=== PATIENT | male | born 1945 | race Caucasian/White ===

== ENCOUNTER 2021-11-17 12:26 | Inpatient (IN) | payer MEDICARE, BC ==
[2021-11-17] MEDS ORDERED: Nitroglycerin 2% Ointment 1 INCH/1 GM Packet ONE (13:03)
[2021-11-17 13:04] LABS: #Basophils 0.1 thou/uL (0.0-0.2); #Eosinphils 0.3 thou/uL (0.0-0.7); #Lymphocytes 2.4 thou/uL (1.20-3.40); #Monocytes 1.1 thou/uL (0.11-0.59); #Neutrophils 6.3 thou/uL (1.40-6.50); %Basophils 0.5 % (0.0-1.0); %Eosinophils 2.6 % (0.0-10.0); %Neutrophils 61.9 % (42.0-75.0); Hemoglobin 12.3 g/dL (14.0-18.0); Mean Corpuscular Hemoglobin 28.2 pg (27.0-31.0); Mean Corpuscular Volume 88.3 fL (78.0-98.0); Mean Platelet Volume 6.8 fL (7.4-10.4); Platelet Count 214 thou/uL (130-400); Red Blood Cell (RBC) Count 4.36 mill/uL (4.70-6.10); White Blood Cell (WBC) Count 10.2 thou/uL (4.8-10.8)
[2021-11-17 13:25] LABS: ALT (SGPT) 34 U/L (8-55); AST (SGOT) 33 U/L (5-34); Albumin 3.5 g/dL (3.4-4.8); Alkaline Phosphatase 85 U/L (40-110); Anion Gap 18 mmol/L (10-20); BUN (Urea Nitrogen) 27 mg/dL (8.4-25.7); Bilirubin, Total 0.9 mg/dL (0.2-1.2); Calc. Creatinine Clearance 0 mL/min (70-130); Calcium 9.3 mg/dL (7.8-10.44); Carbon Dioxide 26 mmol/L (23-31); Chloride 92 mmol/L (98-107); Estimated GFR 47; Glucose 169 mg/dL (83-110); Protein, Total 7.5 g/dL (5.8-8.1); Sodium 132 mmol/L (136-145)
[2021-11-17] MEDS ORDERED: Furosemide 20 MG/2 ML VIAL ONE (14:17)
[2021-11-17] MEDS ORDERED: Furosemide 40 MG/4 ML VIAL ONE (14:17)
[2021-11-17 14:51] LABS: CKMB 1.6 ng/mL (0-6.6)
[2021-11-17] MEDS ORDERED: Ondansetron ODT 4 MG TAB PO PRN (15:47)
[2021-11-17] MEDS ORDERED: Acetaminophen 325 MG TAB PO PRN (15:47)
[2021-11-17 17:33] LABS: Troponin I 0.034 ng/mL (< 0.028)
[2021-11-17] MEDS: Metoprolol Tartrate 25 MG TAB PO SCH (20:11)
[2021-11-17] MEDS: Apixaban 5 MG TAB PO SCH (20:59)
[2021-11-17] MEDS: Atorvastatin Calcium 40 MG TAB PO SCH (20:59)
[2021-11-17] MEDS ORDERED: Tamsulosin HCl 0.4 MG CAP PO SCH (21:00)
[2021-11-17] MEDS: Mirtazapine 15 MG Soltab PO SCH (21:00)
[2021-11-17 21:01] LABS: Troponin I 0.035 ng/mL (< 0.028)
[2021-11-18 04:04] LABS: #Eosinphils 0.4 thou/uL (0.0-0.7); #Lymphocytes 2.1 thou/uL (1.20-3.40); #Monocytes 0.8 thou/uL (0.11-0.59); #Neutrophils 4.5 thou/uL (1.40-6.50); %Basophils 0.6 % (0.0-1.0); %Eosinophils 5.4 % (0.0-10.0); %Lymphocytes 26.6 % (21.0-51.0); %Monocytes 10.4 % (0.0-10.0); %Neutrophils 57.1 % (42.0-75.0); Hemoglobin 10.8 g/dL (14.0-18.0); Mean Corpuscular HGB CONC 32.2 g/dL (32.0-36.0); Mean Corpuscular Hemoglobin 28.6 pg (27.0-31.0); Mean Corpuscular Volume 88.7 fL (78.0-98.0); Mean Platelet Volume 6.6 fL (7.4-10.4); Platelet Count 197 thou/uL (130-400); RBC Distribution Width 16.2 % (11.5-14.5); Red Blood Cell (RBC) Count 3.77 mill/uL (4.70-6.10)
[2021-11-18 04:27] LABS: Anion Gap 13 mmol/L (10-20); BUN (Urea Nitrogen) 26 mg/dL (8.4-25.7); Calc. Creatinine Clearance 49 mL/min (70-130); Calcium 8.3 mg/dL (7.8-10.44); Carbon Dioxide 32 mmol/L (23-31); Chloride 96 mmol/L (98-107); Estimated GFR 56; Glucose 110 mg/dL (83-110); Potassium 3.1 mmol/L (3.5-5.1); Sodium 138 mmol/L (136-145)
[2021-11-18] MEDS: Amiodarone 200 MG TAB PO SCH (08:59)
[2021-11-18] MEDS: Apixaban 5 MG TAB PO SCH ×2 (08:59→21:22)
[2021-11-18] MEDS: Aspirin 81 mg Enteric Coated Tablet PO SCH (08:59)
[2021-11-18] MEDS ORDERED: Potassium Chloride 40 MEQ in Premix Bag 1 BAG IVPB SCH (09:00)
[2021-11-18] MEDS: Metoprolol Tartrate 25 MG TAB PO SCH (09:00)
[2021-11-18] MEDS: Furosemide 40 MG/4 ML VIAL SLOW IVP SCH (10:14)
[2021-11-18] MEDS: Calcium Carbonate + Vit D 250 MG TAB PO SCH (10:14)
[2021-11-18] MEDS: Mirtazapine 15 MG Soltab PO SCH (21:22)
[2021-11-18] MEDS: Atorvastatin Calcium 40 MG TAB PO SCH (21:22)
[2021-11-19 04:51] LABS: #Basophils 0.1 thou/uL (0.0-0.2); #Eosinphils 0.4 thou/uL (0.0-0.7); #Lymphocytes 2.2 thou/uL (1.20-3.40); #Monocytes 0.9 thou/uL (0.11-0.59); #Neutrophils 5.4 thou/uL (1.40-6.50); %Basophils 0.8 % (0.0-1.0); %Eosinophils 4.3 % (0.0-10.0); %Lymphocytes 24.9 % (21.0-51.0); %Monocytes 9.5 % (0.0-10.0); %Neutrophils 60.5 % (42.0-75.0); Hemoglobin 10.9 g/dL (14.0-18.0); Mean Corpuscular HGB CONC 31.6 g/dL (32.0-36.0); Mean Corpuscular Hemoglobin 28.2 pg (27.0-31.0); Mean Corpuscular Volume 89.1 fL (78.0-98.0); Mean Platelet Volume 6.9 fL (7.4-10.4); Platelet Count 214 thou/uL (130-400); RBC Distribution Width 16.2 % (11.5-14.5); Red Blood Cell (RBC) Count 3.85 mill/uL (4.70-6.10)
[2021-11-19 05:15] LABS: Anion Gap 14 mmol/L (10-20); BUN (Urea Nitrogen) 21 mg/dL (8.4-25.7); Calc. Creatinine Clearance 54 mL/min (70-130); Calcium 8.7 mg/dL (7.8-10.44); Carbon Dioxide 30 mmol/L (23-31); Chloride 98 mmol/L (98-107); Estimated GFR 64; Glucose 115 mg/dL (83-110); Potassium 3.2 mmol/L (3.5-5.1); Sodium 139 mmol/L (136-145)
[2021-11-19] MEDS: Apixaban 5 MG TAB PO SCH ×2 (09:53→20:21)
[2021-11-19] MEDS: Spironolactone 25 MG TAB PO SCH (09:53)
[2021-11-19] MEDS: Aspirin 81 mg Enteric Coated Tablet PO SCH (09:55)
[2021-11-19] MEDS: Amiodarone 200 MG TAB PO SCH (09:55)
[2021-11-19] MEDS: Furosemide 40 MG/4 ML VIAL SLOW IVP SCH (09:55)
[2021-11-19] MEDS: Calcium Carbonate + Vit D 250 MG TAB PO SCH (09:56)
[2021-11-19] MEDS: Empagliflozin 10 MG TAB PO SCH (09:56)
[2021-11-19] MEDS: Atorvastatin Calcium 40 MG TAB PO SCH (20:21)
[2021-11-19] MEDS: Mirtazapine 15 MG Soltab PO SCH (20:22)
[2021-11-20 04:51] LABS: #Basophils 0.1 thou/uL (0.0-0.2); #Eosinphils 0.6 thou/uL (0.0-0.7); #Monocytes 0.8 thou/uL (0.11-0.59); #Neutrophils 4.5 thou/uL (1.40-6.50); %Basophils 0.8 % (0.0-1.0); %Eosinophils 7.9 % (0.0-10.0); %Lymphocytes 24.9 % (21.0-51.0); %Monocytes 10.4 % (0.0-10.0); %Neutrophils 55.9 % (42.0-75.0); Hemoglobin 11.6 g/dL (14.0-18.0); Mean Corpuscular HGB CONC 32.1 g/dL (32.0-36.0); Mean Corpuscular Hemoglobin 28.7 pg (27.0-31.0); Mean Corpuscular Volume 89.4 fL (78.0-98.0); Mean Platelet Volume 6.4 fL (7.4-10.4); Platelet Count 220 thou/uL (130-400); RBC Distribution Width 16.4 % (11.5-14.5); Red Blood Cell (RBC) Count 4.04 mill/uL (4.70-6.10); White Blood Cell (WBC) Count 8.1 thou/uL (4.8-10.8)
[2021-11-20 05:16] LABS: Anion Gap 14 mmol/L (10-20); BUN (Urea Nitrogen) 17 mg/dL (8.4-25.7); Calc. Creatinine Clearance 53 mL/min (70-130); Calcium 8.4 mg/dL (7.8-10.44); Carbon Dioxide 29 mmol/L (23-31); Chloride 97 mmol/L (98-107); Estimated GFR 64; Glucose 110 mg/dL (83-110); Magnesium 1.9 mg/dL (1.6-2.6); Sodium 137 mmol/L (136-145)
[2021-11-20] MEDS: Furosemide 40 MG/4 ML VIAL SLOW IVP SCH (08:46)
[2021-11-20] MEDS: Apixaban 5 MG TAB PO SCH ×2 (08:46→20:41)
[2021-11-20] MEDS: Spironolactone 25 MG TAB PO SCH (08:46)
[2021-11-20] MEDS: Amiodarone 200 MG TAB PO SCH (08:46)
[2021-11-20] MEDS: Aspirin 81 mg Enteric Coated Tablet PO SCH (08:47)
[2021-11-20] MEDS: Empagliflozin 10 MG TAB PO SCH (08:47)
[2021-11-20] MEDS: Calcium Carbonate + Vit D 250 MG TAB PO SCH (08:53)
[2021-11-20] MEDS ORDERED: Potassium Chloride 20 MEQ TAB PO SCH (09:00)
[2021-11-20 13:03] VITALS: BMI 23.0
[2021-11-20] MEDS: Potassium Chloride 20 MEQ TAB PO SCH (17:53)
[2021-11-20] MEDS: Atorvastatin Calcium 40 MG TAB PO SCH (20:41)
[2021-11-20] MEDS: Mirtazapine 15 MG Soltab PO SCH (20:42)
[2021-11-21 04:06] LABS: #Eosinphils 0.6 thou/uL (0.0-0.7); #Lymphocytes 2.1 thou/uL (1.20-3.40); #Monocytes 0.9 thou/uL (0.11-0.59); #Neutrophils 3.9 thou/uL (1.40-6.50); %Basophils 0.4 % (0.0-1.0); %Eosinophils 8.6 % (0.0-10.0); %Lymphocytes 27.2 % (21.0-51.0); %Monocytes 11.5 % (0.0-10.0); %Neutrophils 52.2 % (42.0-75.0); Hemoglobin 11.6 g/dL (14.0-18.0); Mean Corpuscular HGB CONC 32.3 g/dL (32.0-36.0); Mean Corpuscular Hemoglobin 28.8 pg (27.0-31.0); Mean Corpuscular Volume 89.2 fL (78.0-98.0); Mean Platelet Volume 6.2 fL (7.4-10.4); Platelet Count 224 thou/uL (130-400); RBC Distribution Width 16.2 % (11.5-14.5); Red Blood Cell (RBC) Count 4.01 mill/uL (4.70-6.10); White Blood Cell (WBC) Count 7.5 thou/uL (4.8-10.8)
[2021-11-21 04:26] LABS: Anion Gap 11 mmol/L (10-20); BUN (Urea Nitrogen) 17 mg/dL (8.4-25.7); Calc. Creatinine Clearance 61 mL/min (70-130); Calcium 8.4 mg/dL (7.8-10.44); Carbon Dioxide 28 mmol/L (23-31); Chloride 101 mmol/L (98-107); Estimated GFR 75; Glucose 113 mg/dL (83-110); Potassium 3.4 mmol/L (3.5-5.1); Sodium 137 mmol/L (136-145)
[2021-11-21] MEDS ORDERED: Potassium Chloride 20 MEQ TAB PO SCH (08:45)
[2021-11-21] MEDS: Aspirin 81 mg Enteric Coated Tablet PO SCH (09:02)
[2021-11-21] MEDS: Apixaban 5 MG TAB PO SCH ×2 (09:02→21:19)
[2021-11-21] MEDS: Furosemide 40 MG/4 ML VIAL SLOW IVP SCH (09:02)
[2021-11-21] MEDS: Amiodarone 200 MG TAB PO SCH (09:02)
[2021-11-21] MEDS: Empagliflozin 10 MG TAB PO SCH (09:03)
[2021-11-21] MEDS: Calcium Carbonate + Vit D 250 MG TAB PO SCH (10:48)
[2021-11-21] MEDS: Potassium Chloride 20 MEQ TAB PO SCH (10:58)
[2021-11-21] MEDS: Atorvastatin Calcium 40 MG TAB PO SCH (21:20)
[2021-11-21] MEDS: Mirtazapine 15 MG Soltab PO SCH (21:20)
[2021-11-22 03:59] LABS: #Basophils 0.1 thou/uL (0.0-0.2); #Eosinphils 0.7 thou/uL (0.0-0.7); #Lymphocytes 2.6 thou/uL (1.20-3.40); #Neutrophils 4.5 thou/uL (1.40-6.50); %Basophils 0.8 % (0.0-1.0); %Lymphocytes 29.8 % (21.0-51.0); %Neutrophils 50.3 % (42.0-75.0); Hemoglobin 11.5 g/dL (14.0-18.0); Mean Corpuscular HGB CONC 31.3 g/dL (32.0-36.0); Mean Corpuscular Hemoglobin 27.8 pg (27.0-31.0); Mean Corpuscular Volume 88.8 fL (78.0-98.0); Mean Platelet Volume 6.1 fL (7.4-10.4); Platelet Count 241 thou/uL (130-400); RBC Distribution Width 16.2 % (11.5-14.5); Red Blood Cell (RBC) Count 4.14 mill/uL (4.70-6.10); White Blood Cell (WBC) Count 8.9 thou/uL (4.8-10.8)
[2021-11-22 04:32] LABS: Anion Gap 17 mmol/L (10-20); BUN (Urea Nitrogen) 18 mg/dL (8.4-25.7); Calc. Creatinine Clearance 55 mL/min (70-130); Calcium 8.6 mg/dL (7.8-10.44); Carbon Dioxide 23 mmol/L (23-31); Chloride 98 mmol/L (98-107); Estimated GFR 66; Glucose 104 mg/dL (83-110); Magnesium 1.8 mg/dL (1.6-2.6); Potassium 3.7 mmol/L (3.5-5.1); Sodium 134 mmol/L (136-145)
[2021-11-22] MEDS: Furosemide 40 MG/4 ML VIAL SLOW IVP SCH ×2 (06:14→13:01)
[2021-11-22] MEDS: Aspirin 81 mg Enteric Coated Tablet PO SCH (08:31)
[2021-11-22] MEDS: Amiodarone 200 MG TAB PO SCH (08:31)
[2021-11-22] MEDS: Apixaban 5 MG TAB PO SCH ×2 (08:32→20:45)
[2021-11-22] MEDS: Empagliflozin 10 MG TAB PO SCH (08:32)
[2021-11-22] MEDS: Calcium Carbonate + Vit D 250 MG TAB PO SCH (08:32)
[2021-11-22] MEDS ORDERED: Guaifenesin DM 100-10/5 ML UDCUP PO PRN (10:32)
[2021-11-22] MEDS: Mirtazapine 15 MG Soltab PO SCH (20:45)
[2021-11-22] MEDS: Atorvastatin Calcium 40 MG TAB PO SCH (20:45)
[2021-11-23] MEDS: Furosemide 40 MG/4 ML VIAL SLOW IVP SCH ×2 (06:30→12:35)
[2021-11-23] MEDS: Apixaban 5 MG TAB PO SCH ×2 (09:03→20:53)
[2021-11-23] MEDS: Aspirin 81 mg Enteric Coated Tablet PO SCH (09:04)
[2021-11-23] MEDS: Empagliflozin 10 MG TAB PO SCH (09:05)
[2021-11-23] MEDS: Calcium Carbonate + Vit D 250 MG TAB PO SCH (09:07)
[2021-11-23] MEDS: Amiodarone 200 MG TAB PO SCH (11:06)
[2021-11-23] MEDS: Mirtazapine 15 MG Soltab PO SCH (20:53)
[2021-11-23] MEDS: Atorvastatin Calcium 40 MG TAB PO SCH (20:53)
[2021-11-24 05:04] LABS: Anion Gap 14 mmol/L (10-20); BUN (Urea Nitrogen) 19 mg/dL (8.4-25.7); Calc. Creatinine Clearance 59 mL/min (70-130); Calcium 8.7 mg/dL (7.8-10.44); Carbon Dioxide 25 mmol/L (23-31); Chloride 100 mmol/L (98-107); Estimated GFR 71; Glucose 110 mg/dL (83-110); Potassium 3.4 mmol/L (3.5-5.1); Sodium 136 mmol/L (136-145)
[2021-11-24] MEDS: Furosemide 40 MG/4 ML VIAL SLOW IVP SCH ×2 (05:32→13:28)
[2021-11-24] MEDS: Apixaban 5 MG TAB PO SCH (08:32)
[2021-11-24] MEDS: Aspirin 81 mg Enteric Coated Tablet PO SCH (08:32)
[2021-11-24] MEDS: Empagliflozin 10 MG TAB PO SCH (08:32)
[2021-11-24] MEDS: Amiodarone 200 MG TAB PO SCH (08:32)
[2021-11-24 12:36] VITALS: TEMP 97.8
[2021-11-24] MEDS: Calcium Carbonate + Vit D 250 MG TAB PO SCH (13:28)
[2021-11-24 16:33] VITALS: BP 95/52
== END 2021-11-24 17:20 | disposition home health service (06) | DRG 280 ==
LOC: ERS 12:26 → 2NO 14:01
PROVIDERS: ADMIT Family Medicine; ATTEND Family Medicine
DX: I13.0 Hypertensive heart and chronic kidney disease with heart failure and stage 1 through stage 4 chronic kidney disease, or unspecified chronic kidney disease (principal); I21.A1 Myocardial infarction type 2; I50.23 Acute on chronic systolic (congestive) heart failure; J96.01 Acute respiratory failure with hypoxia; N17.9 Acute kidney failure, unspecified; E87.1 Hypo-osmolality and hyponatremia; Z20.822 Contact with and (suspected) exposure to COVID-19; I48.91 Unspecified atrial fibrillation; E11.22 Type 2 diabetes mellitus with diabetic chronic kidney disease; I25.5 Ischemic cardiomyopathy; E87.6 Hypokalemia; E78.5 Hyperlipidemia, unspecified; D69.6 Thrombocytopenia, unspecified; N18.30 Chronic kidney disease, stage 3 unspecified; D63.1 Anemia in chronic kidney disease; I25.10 Atherosclerotic heart disease of native coronary artery without angina pectoris; I95.9 Hypotension, unspecified; Z79.01 Long term (current) use of anticoagulants; Z79.82 Long term (current) use of aspirin; Z79.899 Other long term (current) drug therapy; Z95.1 Presence of aortocoronary bypass graft
CPT/HCPCS: 36415; 71045; 80048; 80053; 82553; 83735; 83880; 84443; 84484; 85025; 93005; 93306; 93798; 96374; J1940; J3480; U0003; U0005

== ENCOUNTER 2021-12-25 18:45 | Inpatient (IN) | payer MEDICARE ==
[2021-12-25 20:26] LABS: #Lymphocytes 1.2 thou/uL (1.20-3.40); #Monocytes 1.3 thou/uL (0.11-0.59); #Neutrophils 9.8 thou/uL (1.40-6.50); %Basophils 0.3 % (0.0-1.0); %Eosinophils 0.3 % (0.0-10.0); %Monocytes 10.1 % (0.0-10.0); %Neutrophils 79.4 % (42.0-75.0); Hemoglobin 12.7 g/dL (14.0-18.0); Mean Corpuscular HGB CONC 31.6 g/dL (32.0-36.0); Mean Corpuscular Hemoglobin 28.5 pg (27.0-31.0); Mean Corpuscular Volume 90.1 fL (78.0-98.0); Mean Platelet Volume 7.4 fL (7.4-10.4); Platelet Count 241 thou/uL (130-400); RBC Distribution Width 19.1 % (11.5-14.5); Red Blood Cell (RBC) Count 4.46 mill/uL (4.70-6.10); White Blood Cell (WBC) Count 12.4 thou/uL (4.8-10.8)
[2021-12-25 20:47] LABS: ALT (SGPT) 630 U/L (8-55); AST (SGOT) 870 U/L (5-34); Albumin 3.4 g/dL (3.4-4.8); Alkaline Phosphatase 138 U/L (40-110); Anion Gap 22 mmol/L (10-20); BUN (Urea Nitrogen) 32 mg/dL (8.4-25.7); Bilirubin, Total 1.2 mg/dL (0.2-1.2); Calc. Creatinine Clearance 0 mL/min (70-130); Calcium 9.2 mg/dL (7.8-10.44); Carbon Dioxide 22 mmol/L (23-31); Chloride 94 mmol/L (98-107); Estimated GFR 44; Globulin 3.4 g/dL (2.4-3.5); Glucose 145 mg/dL (83-110); Potassium 3.5 mmol/L (3.5-5.1); Protein, Total 6.8 g/dL (5.8-8.1); Sodium 134 mmol/L (136-145)
[2021-12-25] MEDS ORDERED: Albumin 25% 25 GM/100 ML BOT IVPB SCH (21:00)
[2021-12-25 21:08] LABS: CKMB 1.8 ng/mL (0-6.6)
[2021-12-25] MEDS ORDERED: Furosemide 20 MG/2 ML VIAL ONE (22:08)
[2021-12-26 00:19] LABS: SARS-CoV-2 NAA Rapid Test Not Detected (NotDetected)
[2021-12-26 00:59] LABS: Troponin I 0.049 ng/mL (< 0.028)
[2021-12-26 04:11] LABS: #Lymphocytes 1.7 thou/uL (1.20-3.40); #Monocytes 0.9 thou/uL (0.11-0.59); #Neutrophils 8.1 thou/uL (1.40-6.50); %Basophils 0.3 % (0.0-1.0); %Eosinophils 0.3 % (0.0-10.0); %Lymphocytes 15.4 % (21.0-51.0); %Monocytes 8.5 % (0.0-10.0); %Neutrophils 75.6 % (42.0-75.0); Hemoglobin 11.5 g/dL (14.0-18.0); Mean Corpuscular HGB CONC 31.7 g/dL (32.0-36.0); Mean Corpuscular Hemoglobin 27.9 pg (27.0-31.0); Mean Corpuscular Volume 88.2 fL (78.0-98.0); Mean Platelet Volume 7.5 fL (7.4-10.4); Platelet Count 196 thou/uL (130-400); RBC Distribution Width 18.6 % (11.5-14.5); Red Blood Cell (RBC) Count 4.12 mill/uL (4.70-6.10); White Blood Cell (WBC) Count 10.8 thou/uL (4.8-10.8)
[2021-12-26] MEDS ORDERED: Dextrose 5% in Water 1,000 ML IV PRN ×2 (04:30→20:14)
[2021-12-26] MEDS ORDERED: HumaLOG 300 UNITS/3 ML VIAL SC PRN ×2 (04:30→20:15)
[2021-12-26] MEDS ORDERED: Dextrose 50% Abboject 50 ML SYRINGE SLOW IVP PRN ×2 (04:30→20:14)
[2021-12-26] MEDS ORDERED: Furosemide 20 MG/2 ML VIAL ONE (05:46)
[2021-12-26] MEDS ORDERED: Furosemide 20 MG/2 ML VIAL SLOW IVP SCH (06:00)
[2021-12-26 06:13] LABS: ALT (SGPT) 729 U/L (8-55); AST (SGOT) 998 U/L (5-34); Albumin 3.5 g/dL (3.4-4.8); Alkaline Phosphatase 112 U/L (40-110); BUN (Urea Nitrogen) 33 mg/dL (8.4-25.7); Calc. Creatinine Clearance 0 mL/min (70-130); Calcium 9.1 mg/dL (7.8-10.44); Carbon Dioxide 22 mmol/L (23-31); Chloride 97 mmol/L (98-107); Estimated GFR 48; Glucose 124 mg/dL (83-110); Magnesium 2.3 mg/dL (1.6-2.6); Potassium 3.2 mmol/L (3.5-5.1); Protein, Total 6.5 g/dL (5.8-8.1); Sodium 136 mmol/L (136-145)
[2021-12-26 06:57] LABS: Anion Gap 20 mmol/L (10-20)
[2021-12-26 07:46] LABS: Bilirubin, Total 1.3 mg/dL (0.2-1.2)
[2021-12-26] MEDS ORDERED: Potassium Chloride 20 MEQ TAB PO SCH (08:00)
[2021-12-26] MEDS ORDERED: Aspirin Chewable 81 MG TAB PO SCH (09:00)
[2021-12-26] MEDS ORDERED: Potassium Chloride 20 MEQ TAB ONE (09:10)
[2021-12-26] MEDS ORDERED: Aspirin Chewable 81 MG TAB ONE (09:10)
[2021-12-26] MEDS: Heparin 5,000 UNITS/ML VIAL SC SCH ×3 (09:15→20:46)
[2021-12-26] MEDS ORDERED: Albumin 25% 25 GM/100 ML BOT IVPB SCH (14:00)
[2021-12-26] MEDS: Furosemide 40 MG/4 ML VIAL SLOW IVP SCH (16:47)
[2021-12-26] MEDS ORDERED: Furosemide 40 MG/4 ML VIAL SLOW IVP SCH (20:45)
[2021-12-26] MEDS: Mirtazapine 15 MG Soltab PO SCH (20:52)
[2021-12-26] MEDS: Atorvastatin Calcium 40 MG TAB PO SCH (20:52)
[2021-12-26] MEDS ORDERED: Atorvastatin Calcium 40 MG TAB PO SCH (21:00)
[2021-12-26] MEDS ORDERED: Non-Formulary Item 1 EACH (Omeprazole [Omeprazole] 20 MG Tab.Rap.Dr) PO SCH (21:00)
[2021-12-26] MEDS ORDERED: Mirtazapine 15 MG Soltab PO SCH (21:00)
[2021-12-27] MEDS ORDERED: Furosemide 40 MG/4 ML VIAL ONE (05:26)
[2021-12-27] MEDS: Furosemide 40 MG/4 ML VIAL SLOW IVP SCH (06:15)
[2021-12-27] MEDS: Aspirin Chewable 81 MG TAB PO SCH (09:08)
[2021-12-27] MEDS: Metolazone 2.5 MG TAB PO SCH (09:08)
[2021-12-27] MEDS: Potassium Chloride 20 MEQ TAB PO SCH (09:08)
[2021-12-27] MEDS: Heparin 5,000 UNITS/ML VIAL SC SCH ×3 (09:10→20:27)
[2021-12-27 09:43] LABS: Anion Gap 19 mmol/L (10-20); BUN (Urea Nitrogen) 52 mg/dL (8.4-25.7); Calc. Creatinine Clearance 0 mL/min (70-130); Calcium 8.9 mg/dL (7.8-10.44); Carbon Dioxide 24 mmol/L (23-31); Chloride 99 mmol/L (98-107); Estimated GFR 37; Glucose 112 mg/dL (83-110); Potassium 3.5 mmol/L (3.5-5.1); Sodium 138 mmol/L (136-145)
[2021-12-27 09:53] LABS: Anisocytosis SLIGHT = 6-15 cells (100X) (0-5/hpf); Auer Rods SLIGHT; Band 13 % (5-11); Hemoglobin 11.9 g/dL (14.0-18.0); Lymphocytes 11 % (21-51); MDiff Complete? YES; Mean Corpuscular HGB CONC 31.3 g/dL (32.0-36.0); Mean Corpuscular Hemoglobin 28.7 pg (27.0-31.0); Mean Corpuscular Volume 91.5 fL (78.0-98.0); Mean Platelet Volume 7.7 fL (7.4-10.4); Monocytes 1 % (0-10); Neutrophil 72 % (42-75); Nucleated RBC 1 % (0); Platelet Count 157 thou/uL (130-400); Polychromasia MODERATE = 3-4 cells (100X) (0-2/hpf); RBC Distribution Width 19.5 % (11.5-14.5); Reactive Lymphocytes 3 % (0-10); Red Blood Cell (RBC) Count 4.16 mill/uL (4.70-6.10)
[2021-12-27] MEDS ORDERED: Milk Of Magnesia 30 ML UDCUP PO PRN (10:07)
[2021-12-27] MEDS: Mirtazapine 15 MG Soltab PO SCH (20:27)
[2021-12-27] MEDS: Atorvastatin Calcium 40 MG TAB PO SCH (20:27)
[2021-12-28 04:20] LABS: Anion Gap 15 mmol/L (10-20); BUN (Urea Nitrogen) 51 mg/dL (8.4-25.7); Calc. Creatinine Clearance 0 mL/min (70-130); Calcium 8.8 mg/dL (7.8-10.44); Carbon Dioxide 31 mmol/L (23-31); Chloride 97 mmol/L (98-107); Estimated GFR 45; Glucose 89 mg/dL (83-110); Sodium 140 mmol/L (136-145)
[2021-12-28 04:25] LABS: Potassium 2.5 mmol/L (3.5-5.1)
[2021-12-28] MEDS ORDERED: Potassium Chloride 20 MEQ TAB PO SCH ×2 (05:15→13:00)
[2021-12-28 05:36] LABS: Magnesium 2.2 mg/dL (1.6-2.6)
[2021-12-28] MEDS: Metolazone 2.5 MG TAB PO SCH (08:11)
[2021-12-28] MEDS: Heparin 5,000 UNITS/ML VIAL SC SCH ×3 (08:11→20:25)
[2021-12-28] MEDS: Potassium Chloride 20 MEQ TAB PO SCH (08:11)
[2021-12-28] MEDS: Aspirin Chewable 81 MG TAB PO SCH (08:11)
[2021-12-28 11:24] LABS: Anion Gap 15 mmol/L (10-20); BUN (Urea Nitrogen) 47 mg/dL (8.4-25.7); Calc. Creatinine Clearance 0 mL/min (70-130); Calcium 9.1 mg/dL (7.8-10.44); Carbon Dioxide 30 mmol/L (23-31); Chloride 98 mmol/L (98-107); Estimated GFR 53; Glucose 137 mg/dL (83-110); Potassium 3.1 mmol/L (3.5-5.1); Sodium 140 mmol/L (136-145)
[2021-12-28 16:07] LABS: Potassium 3.8 mmol/L (3.5-5.1)
[2021-12-28] MEDS: Mirtazapine 15 MG Soltab PO SCH (20:26)
[2021-12-28] MEDS: Atorvastatin Calcium 40 MG TAB PO SCH (20:26)
[2021-12-29 05:06] LABS: ALT (SGPT) 1593 U/L (8-55); AST (SGOT) 1003 U/L (5-34); Albumin 3.2 g/dL (3.4-4.8); Alkaline Phosphatase 98 U/L (40-110); Anion Gap 15 mmol/L (10-20); BUN (Urea Nitrogen) 51 mg/dL (8.4-25.7); Bilirubin, Total 2.1 mg/dL (0.2-1.2); Calc. Creatinine Clearance 0 mL/min (70-130); Calcium 9.1 mg/dL (7.8-10.44); Carbon Dioxide 28 mmol/L (23-31); Chloride 98 mmol/L (98-107); Estimated GFR 56; Globulin 2.9 g/dL (2.4-3.5); Glucose 126 mg/dL (83-110); Potassium 3.6 mmol/L (3.5-5.1); Protein, Total 6.1 g/dL (5.8-8.1); Sodium 137 mmol/L (136-145)
[2021-12-29 09:14] LABS: HBCM Index 0.06 S/CO (0-0.79); HBSAg Index 0.31 S/CO (0-0.99); Hep A IgM AB Non-Reactive (NonReactive); Hep A IgM S/CO 0.19 S/CO (0-0.79); Hep B Surf Ag Non-Reactive S/CO (NonReactive); Hepatitis B Core IgM Abs Non-Reactive (NonReactive)
[2021-12-29] MEDS: Heparin 5,000 UNITS/ML VIAL SC SCH ×3 (10:08→20:41)
[2021-12-29] MEDS: Metolazone 2.5 MG TAB PO SCH (10:08)
[2021-12-29] MEDS: Aspirin Chewable 81 MG TAB PO SCH (10:08)
[2021-12-29] MEDS: Potassium Chloride 20 MEQ TAB PO SCH (10:08)
[2021-12-29 10:11] LABS: Hep C IgG Ab Reflex HepC Qnt (NonReactive); Hep C Index 2.64 S/CO (0-0.79)
[2021-12-29 11:32] VITALS: BMI 24.1
[2021-12-29 18:09] LABS: Hemoglobin 12.5 g/dL (14.0-18.0); Platelet Count 86 thou/uL (130-400)
[2021-12-29] MEDS: Mirtazapine 15 MG Soltab PO SCH (20:53)
[2021-12-30 05:08] LABS: ALT (SGPT) 1281 U/L (8-55); AST (SGOT) 557 U/L (5-34); Albumin 3.2 g/dL (3.4-4.8); Alkaline Phosphatase 94 U/L (40-110); Bilirubin, Direct 1.3 mg/dL (0.1-0.3); Bilirubin, Total 2.5 mg/dL (0.2-1.2); Protein, Total 6.5 g/dL (5.8-8.1)
[2021-12-30 05:17] LABS: Anion Gap 15 mmol/L (10-20); BUN (Urea Nitrogen) 56 mg/dL (8.4-25.7); Calc. Creatinine Clearance 49 mL/min (70-130); Calcium 8.9 mg/dL (7.8-10.44); Carbon Dioxide 30 mmol/L (23-31); Chloride 96 mmol/L (98-107); Estimated GFR 58; Glucose 147 mg/dL (83-110); Potassium 4.1 mmol/L (3.5-5.1); Sodium 137 mmol/L (136-145)
[2021-12-30 05:20] LABS: Prothrombin Time 22.9 sec (12.0-14.7)
[2021-12-30 05:47] LABS: #Lymphocytes 1.5 thou/uL (1.20-3.40); #Neutrophils 8.6 thou/uL (1.40-6.50); %Basophils 0.1 % (0.0-1.0); %Eosinophils 0.3 % (0.0-10.0); %Lymphocytes 13.5 % (21.0-51.0); %Neutrophils 77.2 % (42.0-75.0); Anisocytosis MODERATE=16-30 cells (100X) (0-5/hpf); Elliptocytes SLIGHT = 2-5 cells (100X) (0-1/hpf); Hemoglobin 12.4 g/dL (14.0-18.0); MDiff Complete? YES; Mean Corpuscular HGB CONC 30.3 g/dL (32.0-36.0); Mean Corpuscular Hemoglobin 27.8 pg (27.0-31.0); Mean Platelet Volume 9.9 fL (7.4-10.4); Platelet Count 78 thou/uL (130-400); Platelet Morphology Comment Appears Decreased; Polychromasia SLIGHT = 2-3 cells (100X) (0-2/hpf); RBC Distribution Width 19.8 % (11.5-14.5); Red Blood Cell (RBC) Count 4.45 mill/uL (4.70-6.10); White Blood Cell (WBC) Count 11.1 thou/uL (4.8-10.8)
[2021-12-30] MEDS: Aspirin Chewable 81 MG TAB PO SCH (09:21)
[2021-12-30] MEDS: Metolazone 2.5 MG TAB PO SCH (09:21)
[2021-12-30] MEDS: Potassium Chloride 20 MEQ TAB PO SCH (09:21)
[2021-12-30] MEDS: Heparin 5,000 UNITS/ML VIAL SC SCH (09:22)
[2021-12-30] MEDS: Furosemide 40 MG/4 ML VIAL SLOW IVP SCH ×2 (09:23→14:35)
[2021-12-30] MEDS: Mirtazapine 15 MG Soltab PO SCH (20:37)
[2021-12-31 05:32] LABS: #Eosinphils 0.1 thou/uL (0.0-0.7); #Lymphocytes 1.4 thou/uL (1.20-3.40); #Monocytes 0.6 thou/uL (0.11-0.59); #Neutrophils 7.1 thou/uL (1.40-6.50); %Basophils 0.1 % (0.0-1.0); %Eosinophils 0.9 % (0.0-10.0); %Lymphocytes 15.1 % (21.0-51.0); %Monocytes 6.9 % (0.0-10.0); Elliptocytes SLIGHT = 2-5 cells (100X) (0-1/hpf); Hemoglobin 11.9 g/dL (14.0-18.0); MDiff Complete? YES; Mean Corpuscular HGB CONC 30.7 g/dL (32.0-36.0); Mean Corpuscular Hemoglobin 28.5 pg (27.0-31.0); Mean Corpuscular Volume 92.7 fl (78.0-98.0); Mean Platelet Volume 9.9 fL (7.4-10.4); Platelet Count 75 thou/uL (130-400); Platelet Morphology Comment Appears Decreased; Red Blood Cell (RBC) Count 4.18 mill/uL (4.70-6.10); White Blood Cell (WBC) Count 9.3 thou/uL (4.8-10.8)
[2021-12-31] MEDS ORDERED: DOBUTamine 500 mg/250 ml 250 ML IVPB SCH (06:00)
[2021-12-31 06:16] LABS: ALT (SGPT) 877 U/L (8-55); AST (SGOT) 247 U/L (5-34); Albumin 3.1 g/dL (3.4-4.8); Alkaline Phosphatase 89 U/L (40-110); Anion Gap 16 mmol/L (10-20); BUN (Urea Nitrogen) 57 mg/dL (8.4-25.7); Bilirubin, Direct 1.6 mg/dL (0.1-0.3); Calc. Creatinine Clearance 53 mL/min (70-130); Carbon Dioxide 33 mmol/L (23-31); Chloride 93 mmol/L (98-107); Estimated GFR 64; Glucose 109 mg/dL (83-110); Protein, Total 6.2 g/dL (5.8-8.1); Sodium 139 mmol/L (136-145)
[2021-12-31 06:21] LABS: Potassium 2.9 mmol/L (3.5-5.1)
[2021-12-31 07:23] LABS: Magnesium 2.3 mg/dL (1.6-2.6)
[2021-12-31] MEDS ORDERED: Metolazone 2.5 MG TAB PO SCH (07:30)
[2021-12-31] MEDS ORDERED: Potassium Chloride 20 MEQ TAB PO SCH ×2 (08:30→18:00)
[2021-12-31] MEDS: Furosemide 40 MG/4 ML VIAL SLOW IVP SCH ×2 (10:16→16:02)
[2021-12-31] MEDS: Aspirin Chewable 81 MG TAB PO SCH (10:16)
[2021-12-31] MEDS: Potassium Chloride 20 MEQ TAB PO SCH (11:07)
[2021-12-31 11:38] LABS: ANA Symphony (Qualitative) Negative (Negative); ANA Symphony (Quantitative) 0.4 Ratio (< 0.7 Negative); EliA Vaculitis New Method **** NEW METHOD ****; dsDNA IgG Antibody 1.6 IU/mL (<10 Negative)
[2021-12-31] MEDS: Mirtazapine 15 MG Soltab PO SCH (20:48)
[2021-12-31 22:09] LABS: Hep C PCR-Quant HCV Not Detected IU/mL (.)
[2022-01-01 04:33] LABS: BUN (Urea Nitrogen) 47 mg/dL (8.4-25.7); Calc. Creatinine Clearance 59 mL/min (70-130); Calcium 8.7 mg/dL (7.8-10.44); Estimated GFR 73; Glucose 118 mg/dL (83-110)
[2022-01-01 04:34] LABS: Potassium 2.7 mmol/L (3.5-5.1); Sodium 142 mmol/L (136-145)
[2022-01-01 04:35] LABS: Chloride 92 mmol/L (98-107)
[2022-01-01 04:41] LABS: Anion Gap 19 mmol/L (10-20); Carbon Dioxide 34 mmol/L (23-31)
[2022-01-01] MEDS ORDERED: Electrolyte Replacement Protocol 1 EACH FS SCH (04:45)
[2022-01-01] MEDS: Potassium Chloride 40 MEQ in Sodium Chloride 0.9% 250 ML 250 ML IVPB SCH ×2 (05:11→11:05)
[2022-01-01 08:13] LABS: #Eosinphils 0.1 thou/uL (0.0-0.7); #Lymphocytes 1.1 thou/uL (1.20-3.40); #Monocytes 0.7 thou/uL (0.11-0.59); #Neutrophils 6.4 thou/uL (1.40-6.50); %Basophils 0.2 % (0.0-1.0); %Lymphocytes 13.4 % (21.0-51.0); %Monocytes 8.3 % (0.0-10.0); %Neutrophils 77.1 % (42.0-75.0); Mean Corpuscular Hemoglobin 28.3 pg (27.0-31.0); Mean Corpuscular Volume 91.5 fl (78.0-98.0); Mean Platelet Volume 8.5 fL (7.4-10.4); Platelet Count 76 thou/uL (130-400); RBC Distribution Width 19.8 % (11.5-14.5); Red Blood Cell (RBC) Count 4.22 mill/uL (4.70-6.10); White Blood Cell (WBC) Count 8.2 thou/uL (4.8-10.8)
[2022-01-01 08:17] LABS: INR-International Normal Ratio 1.6; Prothrombin Time 19.3 sec (12.0-14.7)
[2022-01-01] MEDS ORDERED: Potassium Chloride 40 MEQ in Premix Bag 1 BAG IVPB SCH (09:00)
[2022-01-01] MEDS: Potassium Chloride 20 MEQ TAB PO SCH (09:53)
[2022-01-01] MEDS: Aspirin Chewable 81 MG TAB PO SCH (09:53)
[2022-01-01] MEDS ORDERED: Vancomycin 1.5 GRAM/300 ML BAG 1.5 GM in Premix Bag 1 BAG IVPB SCH (10:00)
[2022-01-01] MEDS ORDERED: Lidocaine 1% (PF) 30 ML VIAL ONE ×2 (13:06→13:07)
[2022-01-01] MEDS ORDERED: Gentamicin 80 MG/2 ML VIAL ONE (13:07)
[2022-01-01] MEDS ORDERED: CEFAZOLIN 1 GM VIAL ONE ×2 (13:07→14:11)
[2022-01-01] MEDS ORDERED: Albumin 5% 500 ML ONE (13:21)
[2022-01-01] MEDS ORDERED: Phenylephrine 10 MG/ML VIAL ONE (13:21)
[2022-01-01] MEDS ORDERED: FENTANYL 50 MCG/ML VIAL 50 MCG/ML VIAL ONE (13:38)
[2022-01-01] MEDS ORDERED: Ondansetron PF 4 MG/2 ML Vial ONE (13:47)
[2022-01-01] MEDS ORDERED: PHENYLEPHRINE-NS 100 MCG/ML 10 ML SYRINGE ONE (13:47)
[2022-01-01] MEDS ORDERED: Iopamidol 370 76% 50 ML VIAL FS ONE (14:09)
[2022-01-01] MEDS: Mirtazapine 15 MG Soltab PO SCH (21:55)
[2022-01-01] MEDS: Atorvastatin Calcium 40 MG TAB PO SCH (21:55)
[2022-01-02 04:32] LABS: ALT (SGPT) 366 U/L (8-55); AST (SGOT) 78 U/L (5-34); Albumin 3.3 g/dL (3.4-4.8); Alkaline Phosphatase 79 U/L (40-110); Anion Gap 15 mmol/L (10-20); BUN (Urea Nitrogen) 46 mg/dL (8.4-25.7); Bilirubin, Total 3.2 mg/dL (0.2-1.2); Calc. Creatinine Clearance 47 mL/min (70-130); Calcium 8.6 mg/dL (7.8-10.44); Carbon Dioxide 33 mmol/L (23-31); Chloride 94 mmol/L (98-107); Estimated GFR 57; Globulin 3.1 g/dL (2.4-3.5); Glucose 131 mg/dL (83-110); Magnesium 2.1 mg/dL (1.6-2.6); Potassium 3.4 mmol/L (3.5-5.1); Protein, Total 6.4 g/dL (5.8-8.1); Sodium 139 mmol/L (136-145)
[2022-01-02 06:10] LABS: Squamous Epithelial 0-3 HPF (0-3)
[2022-01-02 06:12] LABS: Bacteria/HPF 2+ HPF (None Seen)
[2022-01-02 07:21] LABS: Bilirubin Negative (Negative); Blood, Urine 3+ (Negative); Clarity Turbid (Clear); Glucose, Urine (Dipstick) Normal (Negative); Ketone, Urine Negative (Negative); Leukocyte 500 Leu/uL (Negative); Nitrite Negative (Negative); Protein, Urine (Dipstick) 70 mg/dL (Neg-Trace); Specific Gravity, Urine 1.028 (1.002-1.036); Urobilinogen Normal mg/dL (Less than 2)
[2022-01-02] MEDS ORDERED: Potassium Chloride 20 MEQ TAB PO SCH (08:00)
[2022-01-02] MEDS: Aspirin Chewable 81 MG TAB PO SCH (10:10)
[2022-01-02] MEDS: Potassium Chloride 20 MEQ TAB PO SCH (10:12)
[2022-01-02] MEDS: cefTRIAXone\\ROCEPHIN 1 GM in Sodium Chloride 0.9% 100 ML IVPB SCH (10:12)
[2022-01-02] MEDS ORDERED: Furosemide 40 MG/4 ML VIAL SLOW IVP SCH (11:30)
[2022-01-02] MEDS ORDERED: Carvedilol 6.25 MG TAB PO SCH (21:00)
[2022-01-02] MEDS: Carvedilol 3.125 MG TAB PO SCH (21:21)
[2022-01-02] MEDS: Atorvastatin Calcium 40 MG TAB PO SCH (21:21)
[2022-01-02] MEDS: Mirtazapine 15 MG Soltab PO SCH (21:21)
[2022-01-03] MEDS: Aspirin Chewable 81 MG TAB PO SCH (08:58)
[2022-01-03] MEDS: Potassium Chloride 20 MEQ TAB PO SCH (08:58)
[2022-01-03] MEDS: Carvedilol 3.125 MG TAB PO SCH ×2 (08:59→20:45)
[2022-01-03] MEDS: Furosemide 40 MG TAB PO SCH (08:59)
[2022-01-03] MEDS: cefTRIAXone\\ROCEPHIN 1 GM in Sodium Chloride 0.9% 100 ML IVPB SCH (08:59)
[2022-01-03] MEDS: Mirtazapine 15 MG Soltab PO SCH (20:45)
[2022-01-03] MEDS: Atorvastatin Calcium 40 MG TAB PO SCH (20:45)
[2022-01-04 05:20] LABS: #Eosinphils 0.2 thou/uL (0.0-0.7); #Lymphocytes 1.6 thou/uL (1.20-3.40); #Monocytes 0.6 thou/uL (0.11-0.59); #Neutrophils 5.7 thou/uL (1.40-6.50); %Basophils 0.2 % (0.0-1.0); %Eosinophils 2.2 % (0.0-10.0); %Lymphocytes 19.6 % (21.0-51.0); Hemoglobin 10.4 g/dL (14.0-18.0); Mean Corpuscular Hemoglobin 26.9 pg (27.0-31.0); Mean Corpuscular Volume 92.9 fl (78.0-98.0); Mean Platelet Volume 8.3 fL (7.4-10.4); Platelet Count 95 thou/uL (130-400); RBC Distribution Width 19.6 % (11.5-14.5); Red Blood Cell (RBC) Count 3.86 mill/uL (4.70-6.10); White Blood Cell (WBC) Count 8.1 thou/uL (4.8-10.8)
[2022-01-04 05:45] LABS: ALT (SGPT) 154 U/L (8-55); AST (SGOT) 41 U/L (5-34); Alkaline Phosphatase 67 U/L (40-110); Anion Gap 13 mmol/L (10-20); BUN (Urea Nitrogen) 39 mg/dL (8.4-25.7); Bilirubin, Total 2.5 mg/dL (0.2-1.2); Calc. Creatinine Clearance 73 mL/min (70-130); Calcium 8.6 mg/dL (7.8-10.44); Carbon Dioxide 34 mmol/L (23-31); Chloride 93 mmol/L (98-107); Estimated GFR 90; Glucose 111 mg/dL (83-110); Sodium 137 mmol/L (136-145)
[2022-01-04 05:48] LABS: Potassium 2.9 mmol/L (3.5-5.1)
[2022-01-04] MEDS: Potassium Chloride 20 MEQ TAB PO SCH ×2 (06:43→09:15)
[2022-01-04] MEDS: Furosemide 40 MG TAB PO SCH (08:43)
[2022-01-04] MEDS: Carvedilol 3.125 MG TAB PO SCH ×2 (08:43→20:47)
[2022-01-04] MEDS: Aspirin Chewable 81 MG TAB PO SCH (08:43)
[2022-01-04] MEDS: cefTRIAXone\\ROCEPHIN 1 GM in Sodium Chloride 0.9% 100 ML IVPB SCH (08:43)
[2022-01-04 12:11] LABS: Hemoglobin 12.3 g/dL (14.0-18.0)
[2022-01-04 14:44] LABS: Potassium 4.7 mmol/L (3.5-5.1)
[2022-01-04] MEDS: Atorvastatin Calcium 40 MG TAB PO SCH (20:47)
[2022-01-04] MEDS: Mirtazapine 15 MG Soltab PO SCH (20:47)
[2022-01-05 04:45] LABS: Phosphorus 3.4 mg/dL (2.3-4.7)
[2022-01-05 04:50] LABS: ALT (SGPT) 135 U/L (8-55); AST (SGOT) 52 U/L (5-34); Albumin 3.2 g/dL (3.4-4.8); Alkaline Phosphatase 71 U/L (40-110); Anion Gap 16 mmol/L (10-20); BUN (Urea Nitrogen) 52 mg/dL (8.4-25.7); Bilirubin, Total 2.5 mg/dL (0.2-1.2); Calc. Creatinine Clearance 54 mL/min (70-130); Calcium 8.7 mg/dL (7.8-10.44); Carbon Dioxide 29 mmol/L (23-31); Chloride 93 mmol/L (98-107); Estimated GFR 67; Globulin 3.9 g/dL (2.4-3.5); Glucose 126 mg/dL (83-110); Magnesium 2.2 mg/dL (1.6-2.6); Protein, Total 7.1 g/dL (5.8-8.1); Sodium 133 mmol/L (136-145)
[2022-01-05 05:20] LABS: Band 2 % (5-11); Eosinophils 1 % (0-10); Hemoglobin 12.5 g/dL (14.0-18.0); Hypochromia SLIGHT = 6-15 cells (100X) (0-5/hpf); Lymphocytes 19 % (21-51); MDiff Complete? YES; Mean Corpuscular HGB CONC 31.4 g/dL (32.0-36.0); Mean Corpuscular Hemoglobin 29.2 pg (27.0-31.0); Mean Platelet Volume 9.6 fL (7.4-10.4); Neutrophil 78 % (42-75); Platelet Count 117 thou/uL (130-400); Platelet Morphology Comment Appears Decreased; RBC Distribution Width 19.9 % (11.5-14.5); Red Blood Cell (RBC) Count 4.26 mill/uL (4.70-6.10); White Blood Cell (WBC) Count 10.6 thou/uL (4.8-10.8)
[2022-01-05] MEDS ORDERED: Potassium Chloride 20 MEQ TAB PO SCH (08:00)
[2022-01-05] MEDS: Carvedilol 3.125 MG TAB PO SCH ×2 (09:17→20:03)
[2022-01-05] MEDS: Aspirin Chewable 81 MG TAB PO SCH (09:17)
[2022-01-05] MEDS: cefTRIAXone\\ROCEPHIN 1 GM in Sodium Chloride 0.9% 100 ML IVPB SCH (09:18)
[2022-01-05] MEDS: Furosemide 40 MG TAB PO SCH (09:18)
[2022-01-05 16:12] VITALS: TEMP 96
[2022-01-05 19:58] VITALS: BP 109/67
[2022-01-05] MEDS: Atorvastatin Calcium 40 MG TAB PO SCH (20:04)
[2022-01-05] MEDS: Mirtazapine 15 MG Soltab PO SCH (20:04)
[2022-01-06] MEDS ORDERED: Empagliflozin 10 MG TAB PO SCH (09:00)
== END 2022-01-05 21:05 | disposition home or self-care (01) | DRG 226 ==
LOC: ERS 18:45 → ERHOLD 22:26 → UNDODISIN 12-26 16:55 → IMCU/EMU 12-26 17:33 → 2NO 12-28 14:18
PROVIDERS: ADMIT Internal Medicine; ATTEND Internal Medicine
PROC: 0JH608Z Insertion of Defibrillator Generator into Chest Subcutaneous Tissue and Fascia, Open Approach (ICD-10-PCS; principal; 2022-01-01)
PROC: 02H60KZ Insertion of Defibrillator Lead into Right Atrium, Open Approach (ICD-10-PCS; 2022-01-01)
PROC: 02HK0KZ Insertion of Defibrillator Lead into Right Ventricle, Open Approach (ICD-10-PCS; 2022-01-01)
DX: I13.0 Hypertensive heart and chronic kidney disease with heart failure and stage 1 through stage 4 chronic kidney disease, or unspecified chronic kidney disease (principal); I21.A1 Myocardial infarction type 2; I50.43 Acute on chronic combined systolic (congestive) and diastolic (congestive) heart failure; J96.21 Acute and chronic respiratory failure with hypoxia; N39.0 Urinary tract infection, site not specified; I48.4 Atypical atrial flutter; E87.1 Hypo-osmolality and hyponatremia; Z20.822 Contact with and (suspected) exposure to COVID-19; I25.5 Ischemic cardiomyopathy; E11.22 Type 2 diabetes mellitus with diabetic chronic kidney disease; D69.6 Thrombocytopenia, unspecified; N18.30 Chronic kidney disease, stage 3 unspecified; I25.10 Atherosclerotic heart disease of native coronary artery without angina pectoris; E87.6 Hypokalemia; I48.0 Paroxysmal atrial fibrillation; E88.09 Other disorders of plasma-protein metabolism, not elsewhere classified; E78.5 Hyperlipidemia, unspecified; I25.2 Old myocardial infarction; Z79.01 Long term (current) use of anticoagulants; Z79.899 Other long term (current) drug therapy; Z79.82 Long term (current) use of aspirin; Z95.1 Presence of aortocoronary bypass graft; Z98.890 Other specified postprocedural states
CPT/HCPCS: 33249; 36415; 36416; 71045; 76700; 76705; 80048; 80053; 80074; 80076; 81003; 81015; 82553; 83516; 83690; 83735; 83880; 84100; 84484; 85014; 85018; 85025; 85049; 85610; 86015; 86038; 86225; 87086; 87522; 87811; 93005; 93010; 96374; 96375; C1721; C1777; C1898; J0690; J0696; J1250; J1580; J1644; J1815; J1940; J2001; J2370; J2405; J3010; J3370; J3480; J3490; J7050; P9045; P9047; U0002